=== PATIENT | male | born 1960 | race Caucasian/White ===

== ENCOUNTER → 2020-04-25 | Outpatient (CLI) | payer OTHER ==
[~2020-04-25] MED LIST: BISOPROLOL FUMAR5 MG; IBUPROFEN 600600 M1 PO; NORCO 5-325 TA1 EACH PO; ZOFRAN ODT4 MG PO
== END ==
LOC: M.LAB 11:13
DX: I48.19 Other persistent atrial fibrillation (principal)

== ENCOUNTER 2021-03-28 14:04 | Emergency (ER) | payer OTHER ==
[~2021-03-28] VITALS: Ht 175.3 cm; Wt 93.0 kg
[2021-03-28] MEDS ORDERED: CARDIZEM120 MG PO (14:15)
[2021-03-28] MEDS ORDERED: FLECAINIDE ACET50 M2 PO (14:16)
[2021-03-28 15:12] LABS: ABSOLUTE BASOPHILS 0.1 thou/uL (0.0-0.2); ABSOLUTE EOSINOPHILS 0.1 thou/uL (0.0-0.7); ABSOLUTE MONOCYTES 0.5 thou/uL (0.0-1.2); ABSOLUTE NEUTROPHILS 4.2 thou/uL (1.6-8.1); BASOPHILS 1.1 %; EOSINOPHILS 0.8 %; HEMATOCRIT 49.5 % (42.0-52.0); HEMOGLOBIN 16.6 gm/dL (14.0-18.0); MCHC 33.5 g/dL (28.0-37.0); MCV 92.4 fL (80.0-100.0); MONOCYTES 7.2 %; MPV 7.8 fl. (7.2-11.1); NUCLEATED RBCS 0 /100WBC; PLATELET COUNT* 230 thou/uL (150-400); POLYS 60.9 %; RBC 5.36 mil/uL (4.50-6.00); RDW-CV 13.3 % (10.5-14.5); WBC 6.8 thou/uL (4.0-11.0)
[2021-03-28 15:22] LABS: CREATININE 0.8 mg/dL (0.6-1.3); POTASSIUM 4.8 mmol/L (3.5-5.1)
[2021-03-28 15:27] LABS: ALBUMIN 4.1 g/dL (3.4-5.0); TOTAL BILIRUBIN 0.7 mg/dL (<0.1-1.0); TOTAL PROTEIN 8.1 g/dL (6.4-8.2)
[2021-03-28 16:02] VITALS: BP 169/85
== END 2021-03-28 16:03 | disposition home or self-care (01) ==
LOC: M.ERS 14:04
PROVIDERS: Physician Assistant
DX: M79.662 Pain in left lower leg (principal); I48.91 Unspecified atrial fibrillation; I10 Essential (primary) hypertension; Z88.0 Allergy status to penicillin; Z90.49 Acquired absence of other specified parts of digestive tract

== ENCOUNTER 2021-08-12 11:44 | Inpatient (IN) | payer OTHER ==
[2021-08-12] VITALS (25 sets, daily range): BP systolic 62–206; BP diastolic 34–137
[~2021-08-12] VITALS: Ht 175.3 cm; Wt 96.6 kg
[~2021-08-12 11:44] MED LIST changes: +CARDIZEM120 MG PO; +FLECAINIDE ACET50 M2 PO
[2021-08-12] MEDS ORDERED: ASA81BEC PO (11:55)
[2021-08-12 12:06] LABS: ABSOLUTE BASOPHILS 0.1 thou/uL (0.0-0.2); ABSOLUTE EOSINOPHILS 0.1 thou/uL (0.0-0.7); ABSOLUTE LYMPHOCYTES 1.9 thou/uL (0.8-5.3); ABSOLUTE MONOCYTES 0.8 thou/uL (0.0-1.2); ABSOLUTE NEUTROPHILS 6.2 thou/uL (1.6-8.1); BASOPHILS 0.7 %; EOSINOPHILS 0.7 %; HEMATOCRIT 50.5 % (42.0-52.0); HEMOGLOBIN 17.4 gm/dL (14.0-18.0); MCH 31.8 pg (26.0-34.0); MCHC 34.5 g/dL (28.0-37.0); MCV 92.2 fL (80.0-100.0); MONOCYTES 8.7 %; MPV 7.7 fl. (7.2-11.1); NUCLEATED RBCS 0 /100WBC; PLATELET COUNT* 216 thou/uL (150-400); POLYS 68.9 %; RBC 5.48 mil/uL (4.50-6.00); RDW-CV 13.6 % (10.5-14.5); WBC 9.1 thou/uL (4.0-11.0)
--- NOTE | 2021-08-12 12:08 | EKG ---
[place] [address] ELECTROCARDIOGRAM REPORT Name: RAPHAELEMIL Adriana Room: [facility]#: [id number] Admission: 08/12/21 Attend Phys: Discharge: Date of : 62 Date of Service: 08/12/21 1148 Report #: [id number] THIS REPORT FOR: //name// [facility] ED Test Date: 2021-08-12 Test Time: 11:48:14 Pat Name: EMIL LIM Department: Room: Gender: Infant Caregiver: [place] : 1960 Requested By: Joseph Jacques Order Number: [id number] MD: Giacomo Baig Measurements Intervals [place] Rate: 158 P: 230 NC: 115 QRS: 28 QRSD: 91 T: 47 QT: 297 QTc: 482 Interpretive Statements atrial tachycardia Anterior infarct, old ST depression, probably rate related Compared to ECG 06/03/2009 00:57:27 ST (T wave) deviation now present Sinus rhythm no longer present Electronically Signed On 08-12-2021 12:07:43 CDT by Giacomo Baig [email or web address] <ELECTRONICALLY SIGNED> By: Giacomo Baig MD, [facility] 08/12/21 1207 1148 1148 Giacomo Baig MD, [facility] /EPI
[2021-08-12 12:16] LABS: CALCIUM 9.3 mg/dL (8.5-10.1); CREATININE 0.9 mg/dL (0.6-1.3); POTASSIUM 3.9 mmol/L (3.5-5.1)
[2021-08-12 12:29] LABS: ALBUMIN 4.4 g/dL (3.4-5.0); CK-MB MASS 1.1 ng/mL (<0.5-3.6); MAGNESIUM 1.9 mg/dL (1.8-2.4); TOTAL BILIRUBIN 0.8 mg/dL (<0.1-1.0); TOTAL PROTEIN 8.1 g/dL (6.4-8.2)
--- NOTE | 2021-08-12 12:52 | NUR ---
PT GIVEN LUNCH.
--- NOTE | 2021-08-12 14:53 | TEE ---
[place] [address] TRANSESOPHAGEAL ECHOCARDIOGRAM Name: RAPHAELEMIL Room: [address] IN .R.#: [id number] Admission: 08/12/21 Attend Phys: Brice Hammer, Discharge: Date of : 62 Date of Service: 08/12/21 1453 Report #: [id number] THIS REPORT FOR: cc: Anila Barahona Maggie M. DO Blick, David R. MD [facility] ~ APPROVED REPORT Study performed: 08/12/2021 13:07:23 EXAM: Transesophageal Echocardiogram Patient Location: In-Patient Room #: 202 Status: on-call BSA: 2.11 HR: 105 bpm BP: 148/96 mmHg Rhythm: Atrial Fibrillation Other Information Study Quality: Good Indications Atrial Fibrillation Echo Enhancing Agent Indication: Rule out Shunt Agent(s) / Amount(s) Used: Agitated Saline 20 cc Comments: 2 bubble studies Procedure After obtaining informed consent, patient underwent transesophageal echo in the [facility]. Type of Sedation : Conscious Sedation Sedation was administered by Aiden Alvarez RN. Sedation start time: 1355 Case end Time: 1424 Sedation was achieved intravenously with: Versed (12) Fentanyl (100) Transesophageal probe was inserted and advanced into esophagus without difficulty by Giacomo Baig MD, [facility]. Echo enhancement indication: R/O Septal defect. Echo enhancement agent administered: Agitated Saline The JIM was performed without complications. Synchronized Cardioversion attempted: Successful [facility] [address] [id number] TRANSESOPHAGEAL ECHOCARDIOGRAM Name: EMIL LIM Room: [address] IN [facility]#: [id number] Admission: 08/12/21 Attend Phys: Brice Hammer, Discharge: Date of : 62 Date of Service: 08/12/21 1453 Report #: [id number] Synchronized Cardioversion acheived with 360 Joules after 2 attempt(s). Rhythm following Synchronized Cardioversion: Normal Sinus Rhythm Throughout the procedure, the blood pressure, pulse oximetry, cardiac rhythm, and rate were monitored. The patient tolerated the procedure without adverse effects. Recovery from conscious sedation was uneventful and vital signs were stable. Left Ventricle The left ventricle is normal size. There is normal LV segmental wall motion. There is normal left ventricular wall thickness. Left ventricular systolic function is normal. The left ventricular ejection fraction is within the normal range. LVEF is 55-60%. Right Ventricle The right ventricle is normal size. The right ventricular systolic function is normal. Atria The left atrium size is normal. No thrombus is visualized in the left atrium or appendage. The interatrial septum is intact with no evidence for an atrial septal defect. The right atrium size is normal. Aortic Valve The aortic valve is normal in structure. No aortic regurgitation is present. There is no aortic valvular stenosis. Mitral Valve The mitral valve is normal in structure. Trace mitral regurgitation. No evidence of mitral valve stenosis. Tricuspid Valve The tricuspid valve is normal in structure. There is no tricuspid valve regurgitation noted. Pulmonic Valve The pulmonary valve is normal in structure. There is no pulmonic valvular regurgitation. Great Vessels The aortic root is normal in size. Pericardium [place] [address] TRANSESOPHAGEAL ECHOCARDIOGRAM Name: EMIL LIM Room: [address] [place] .R.#: [id number] Admission: 08/12/21 Attend Phys: Brice Hammer, Discharge: Date of : 62 Date of Service: 08/12/21 145 Report #: [id number] <Conclusion> LVEF is 55-60%. The left atrium size is normal. No thrombus is visualized in the left atrium or appendage. The interatrial septum is intact with no evidence for an atrial septal defect. Trace mitral regurgitation. successful cardioversion from atrial fibrillation to normal sinus rhythm <ELECTRONICALLY SIGNED> By: Giacomo Baig MD, [facility] 08/12/21 1453 145 1453 Giacomo Baig MD, FACC /INF
--- NOTE | 2021-08-12 15:48 | CON ---
[facility] [address] [place] [address] CONSULTATION Name: EMIL LIM Room: [place] [address] ADM IN M.Lauro.#: [id number] Admission: 08/12/21 Attend Phys: Brice Hammer MD Discharge: Date of : 62 Report #: [id number] THIS REPORT FOR: cc: Anila Barahona Maggie M. DO Blick, David R. MD [facility] ~ cc: Anila Barahona DO CARDIOLOGY CONSULTATION HISTORY OF PRESENT ILLNESS: The patient is a 60-year-old single white male who I was asked to see in the emergency room today after he was noted to be in atrial fibrillation. The patient initially presented in 2019 with atrial fibrillation. He was seen by my partner, Dr. Greenwood. He was started on digoxin, diltiazem, and Xarelto. Echocardiogram was unremarkable. He was then started on flecainide. The patient was last seen in clinic in 03/2020 when he was seen by my nurse practitioner. Apparently at that time, he was in atrial fibrillation. The plan was to cardiovert the patient. He has not been back since that time. Recently, the patient has occasional indigestion and left arm pain, but denies chest tightness. He denies shortness of breath, fever. He has had some lightheadedness. Notes occasional episodes of his heart rate will increase. He has had no syncope or edema. He denies any fever or cough. He went to see his primary care physician today and was noted to be in atrial fibrillation. He was sent to the cardiology clinic and referred to the emergency room. PAST MEDICAL AND SURGICAL HISTORY: Significant for no surgical procedures other than a cholecystectomy. He has a history of hypertension. No history of diabetes or hyperlipidemia. MEDICATIONS: He stopped taking Xarelto in the past because of nausea. He takes diltiazem CD 180 mg twice a day, flecainide 50 mg only once a day, aspirin full tablet a day. ALLERGIES: HE HAS AN ALLERGY TO PENICILLIN. FAMILY HISTORY: His father had atrial fibrillation. SOCIAL HISTORY: He is , currently lives with a female friend in [place], [place]. He works for [TIME: 02:12] company. Smokes 3/4th of a pack of cigarettes a day. He drinks up to 4 cups of coffee a day. He can drink a 12-pack of beer on weekends. REVIEW OF SYSTEMS: No history of stroke, asthma, liver disease, kidney disease, [place] [address] CONSULTATION Name: EMIL LIM Room: [address] IN [facility]#: [id number] Admission: 08/12/21 Attend Phys: Brice Hammer MD Discharge: Date of : 62 Report #: [id number] cancer, psychiatric illness, chronic skin condition. PHYSICAL EXAMINATION: GENERAL: Revealed a middle-aged male, appeared in no distress. VITAL SIGNS: He had a blood pressure of 160/100, pulse is 140, irregular. He is afebrile. HEENT: He was anicteric. Conjunctivae pink. Mucosa is moist. NECK: Veins not distended. No carotid bruits. Neck is supple. CHEST: Clear to auscultation. CARDIAC: Irregular, tachycardia. No significant murmur. ABDOMEN: Soft. EXTREMITIES: Had no edema. Posterior tibial pulse 2+ bilaterally. SKIN: Cool and dry. NEUROLOGIC: Nonfocal. LABORATORY DATA: ECG shows atrial fibrillation with a rapid ventricular response rate. Workup in 2020 included creatinine 0.8, cholesterol 211, triglycerides 81, HDL 67, LDL 128. IMPRESSION AND RECOMMENDATIONS: 1. Atrial fibrillation. Recommend JIM and cardioversion. I would recommend anticoagulation, Eliquis and starting sotalol. 2. Hypertension. The patient has been on calcium giovanny. 3. Hyperlipidemia. Recommend low-fat diet. 4. Tobacco abuse. 5. Excessive alcohol intake. <ELECTRONICALLY SIGNED> By: Giacomo Baig MD, [facility] 08/12/21 1548 1139 1236Giacomo Baig MD, FAC /nt
--- NOTE | 2021-08-12 18:51 | NUR ---
PT ADMITTED FROM FUEL TECHNICIAN AFTER CARDIOVERSION. PT IS LETHARGIC BUT ORIENTED X4 PT ATTEMPTED TO STAND TO CHANGE HIS PANTS AND WAS UNSTEADY, NEEDS ASSIST X1. PT HRR SB, HAS C/O OF PAIN IN HIS CHEST. PT GIRLFRIEND BRO WAS WITH HIM WHEN HE CAME UP. HE IS CONTINENT OF B&B, NO SOA OR COUGH.
[2021-08-13 00:24] VITALS: BP 121/82
[2021-08-13 04:59] VITALS: BP 119/80
[2021-08-13 05:25] LABS: ABSOLUTE EOSINOPHILS 0.1 thou/uL (0.0-0.7); ABSOLUTE LYMPHOCYTES 2.5 thou/uL (0.8-5.3); ABSOLUTE MONOCYTES 0.7 thou/uL (0.0-1.2); ABSOLUTE NEUTROPHILS 5.4 thou/uL (1.6-8.1); BASOPHILS 0.4 %; EOSINOPHILS 1.5 %; HEMATOCRIT 44.6 % (42.0-52.0); LYMPHOCYTES 28.7 %; MCH 31.6 pg (26.0-34.0); MCHC 33.8 g/dL (28.0-37.0); MCV 93.4 fL (80.0-100.0); MONOCYTES 7.9 %; MPV 8.3 fl. (7.2-11.1); NUCLEATED RBCS 0 /100WBC; PLATELET COUNT* 189 thou/uL (150-400); POLYS 61.5 %; RBC 4.77 mil/uL (4.50-6.00); RDW-CV 13.5 % (10.5-14.5); WBC 8.8 thou/uL (4.0-11.0)
[2021-08-13 05:28] LABS: POTASSIUM 4.1 mmol/L (3.5-5.1)
[2021-08-13 05:36] LABS: HEMOGLOBIN 15.1 gm/dL (14.0-18.0)
[2021-08-13 08:18] VITALS: BP 120/86
--- NOTE | 2021-08-13 10:52 | NUR ---
CM COMPLETED THE INITAL ASSESSSMENT WITH PT. PT INDICATED HE IS ACTIVE, DRIVES A VEHICLE AND INDEPENDENT WITH ADLS. PT HAS NO DMES NOR HH WITH HH / SNF. PT INDICATED HE WILL STAY OVERNIGHT DOCTOR WOULD LIKE TO MONITOR NEW MEDS. CM WILL NEED TO CHECK HARDEN OF BLOOD THINNER PRIOR TO DC.
[2021-08-13 11:57] VITALS: BP 125/78
[2021-08-13 16:45] VITALS: BP 143/90
[2021-08-13 20:00] VITALS: BP 149/80
[2021-08-14 00:50] VITALS: BP 152/96
[2021-08-14 04:00] VITALS: BP 154/99
[2021-08-14] MEDS ORDERED: ELIQUIS5 MG PO (07:39)
--- NOTE | 2021-08-14 08:03 | NUR ---
ASSUMED CARE OF PT AFTER REPORT AT 1930. PT A&OX4. VSS. PHYSICAL ASSESSMENT COMPLETED AND CHARTED. PT ON RA. PT TRACING SR/SB ON TELE. PT UPADLIB TO RESTROOM. PT COMPLAINED OF LOWER BACK PAIN-MED GIVEN PER JAN. CALL LIGHT WITHIN REACH.
[2021-08-14 08:36] VITALS: BP 183/100
[2021-08-14 09:24] VITALS: BP 183/100
--- NOTE | 2021-08-14 09:28 | NUR ---
ASSUMED PT CARE AT 0730. PT IS A&O X4 PLEASANT AND ANXIOUS TO GO HOME AND GET THINGS DONE. ASSESSMENT COMPLETED AND BP NOTED TO BE HIGH. ONE TIME ORDER FOR DILTIAZEM RECIEVED AND ADMINISTERED. SCHEDULED MEDICATIONS ADMINISTERED ORDERED. NEW ORDER TO DISCHARGE TO HOME. HEART MONITOR REMOVED AND IV DC'D. ALL BELONGINGS WITH PT. PT TAKEN VIA WC BY NURSING STAFF TO MEET RIDE AT ER ENTRANCE AT APPROX. 0930.
--- NOTE | 2021-08-14 12:14 | EKG ---
[place] [address] ELECTROCARDIOGRAM REPORT Name: EMIL LIM Room: [address] IN M.R.#: [id number] Admission: 08/12/21 Attend Phys: Brice Hammer, Discharge: 08/14/21 Date of : 62 Date of Service: 08/13/21 1745 Report #: [id number] THIS REPORT FOR: //name// [facility] Test Date: 2021-08-13 Test Time: 17:45:55 Pat Name: EMIL LIM Department: Room: [facility] Gender: M Band Manager: [place] : 1960 Requested By: Giacomo Baig Order Number: [id number] Reading MD: Giacomo Baig Measurements Intervals [place] Rate: 66 P: 66 NE: 196 QRS: 15 QRSD: 222 T: 34 QT: 442 QTc: 464 Interpretive Statements Sinus rhythm Nonspecific intraventricular conduction delay Compared to ECG 08/12/2021 11:48:14 Ectopic atrial tachycardia, unifocal no longer present Myocardial infarct finding no longer present ST (T wave) deviation no longer present Electronically Signed On 08-14-2021 12:14:21 CDT by Giacomo Baig [email or web address] <ELECTRONICALLY SIGNED> By: Giacomo Baig MD, FAC 08/14/21 1214 1745 1745 Giacomo Baig MD, [facility] /EPI
--- NOTE | 2021-08-15 11:34 | NUR ---
Spoke with the patient by phone, he states he is doing well, has all the medications he needs to take, denied any health concerns.
== END 2021-08-14 10:15 | disposition home or self-care (01) | DRG 309 ==
LOC: M.ERS 11:44 → M.2W 12:34 → M.TBA-ER 12:34 → M.2W 16:08
PROVIDERS: Family Medicine; ADMIT Internal Medicine; ATTEND Internal Medicine
PROC: B24BZZ4 Ultrasonography of Heart with Aorta, Transesophageal (ICD-10-PCS; principal; 2021-08-12)
PROC: 5A2204Z Restoration of Cardiac Rhythm, Single (ICD-10-PCS; principal; 2021-08-12)
DX: I48.91 Unspecified atrial fibrillation (principal); D68.69 Other thrombophilia; Z20.822 Contact with and (suspected) exposure to COVID-19; I10 Essential (primary) hypertension; E78.5 Hyperlipidemia, unspecified; F17.210 Nicotine dependence, cigarettes, uncomplicated; Z90.49 Acquired absence of other specified parts of digestive tract; Z88.0 Allergy status to penicillin; Z82.49 Family history of ischemic heart disease and other diseases of the circulatory system